=== PATIENT | female | born 1995 | race Asian ===

== ENCOUNTER 2021-02-23 06:55 | Emergency (ER) | payer OTHER ==
[~2021-02-23] VITALS: Ht 160 cm; Wt 54.4 kg
[2021-02-23 07:03] VITALS: BP 104/74
--- NOTE | 2021-02-23 07:07 | NUR ---
pt amb to bed 12
--- NOTE | 2021-02-23 07:11 | NUR ---
pt urinated blood at this time.
--- NOTE | 2021-02-23 07:50 | NUR ---
BIB SELF c/o 10/31 urinary burning, urinary frequency x today.pmh: depression, anxiety.
--- NOTE | 2021-02-23 07:50 | NUR ---
Patient being evaluated by DR CEDILLO at bedside.
[2021-02-23] MEDS ORDERED: PHEN-1877 PO (07:54)
[2021-02-23] MEDS ORDERED: SULF-59 PO (07:54)
[2021-02-23 08:02] VITALS: BP 104/74
--- NOTE | 2021-02-23 08:02 | NUR ---
Patient discharged with v/s stable. Written and verbal after care instructions given and explained. Patient alert, oriented and verbalized understanding of instructions. Ambulatory with steady gait. All questions addressed prior to discharge. ID band removed. Patient advised to follow up with PMD. Rx of PYRIDIUM & BACTRIM given. Patient educated on indication of medication including possible reaction and side effects. Opportunity to ask questions provided and answered.
== END 2021-02-23 08:02 | disposition home or self-care (01) ==
LOC: MED 06:55
DX: N39.0 Urinary tract infection, site not specified (principal); F32.9 Major depressive disorder, single episode, unspecified; F41.9 Anxiety disorder, unspecified; Z79.899 Other long term (current) drug therapy
CPT/HCPCS: 81002; 81025; 99283